=== PATIENT | male | born 1990 | race Two or more races ===

== ENCOUNTER 2016-08-20 23:20 | Emergency (ER) | payer BC ==
[~2016-08-20] VITALS: Ht 175.3 cm; Wt 76.6 kg
[~2016-08-20 23:20] MED LIST: NOHOMEMEDS
[2016-08-21 00:30] LABS: HEMATOCRIT 41.2 % (38.0-50.0); MCH 27.8 PG (29.0-34.0); MCV 81.9 FL (86-99); MEAN PLAT.VOLUME 9.1 uM^3 (9.0-12.4); PLATELET COUNT 234 K/uL (156-360); RBC DIS.WIDTH-CV 11.8 % (11.8-14.6); RBC DIS.WIDTH-SD 34.7 % (39-53); RED BLOOD COUNT 5.03 M/uL (4.00-5.50); WHITE BLOOD COUNT 8.1 K/uL (4.1-10.2)
[2016-08-21 00:42] LABS: PROTHROMBIN TIME 10.5 (9.2-11.2); PTT 28.1 (25-32)
[2016-08-21 00:43] LABS: CHLORIDE 102 mEq/L (99-109); POTASSIUM 4.1 mEq/L (3.7-5.4); SODIUM 139 mEq/L (136-147)
[2016-08-21 00:45] LABS: GLUCOSE 89 mg/dL (70-99)
[2016-08-21 00:46] LABS: ANION GAP 10 MEQ/L (2-14)
[2016-08-21 00:49] LABS: GFR ESTIMATE (CALCULATED) > 59 mL/min/; UREA NITROGEN (BUN) 6 mg/dL (9-23)
[2016-08-21] MEDS ORDERED: THORAZINE25 MG PO (07:26)
[2016-08-21 07:36] VITALS: BP 117/90
== END 2016-08-21 07:39 | disposition home or self-care (01) ==
LOC: EME 23:20
PROVIDERS: Emergency Medicine
DX: J95.861 Postprocedural hematoma of a respiratory system organ or structure following other procedure (principal)
CPT/HCPCS: 80048; 85027; 85610; 85730; 86850; 86900; 86901; 99281; 99285; Q0161